=== PATIENT | male | born 1960 | race Caucasian/White ===

== ENCOUNTER → 2016-12-01 | Outpatient (CLI) | payer OTHER ==
[~2016-12-01] MED LIST: ASPIRIN325 M1 PO; ASPIRIN81 M1 PO; ASPIRIN81 M2 PO; ATENOLOL PO; BACLOFEN10 MG PO; BACTRIM DS TABL1 TA1 PO; CALCIUM + D 6001 TA1 PO; CELEXA20 MG; IBUPROFEN600 MG PO; LISINOPRIL5 MG PO; METFORMIN PO; NO MEDICATIONS; PRAVASTATIN SOD80 MG; REQUIP1 MG PO; RESTLESS LEG MED; TORADOL10 MG PO; VICODIN 5/1 TAB 5/50 PO; VITAMIN D2000 UNIT PO
--- NOTE | ~2016-12-01 | CT23 ---
[facility] A Service of [facility] RADIOLOGY TEXT RESULTS PATIENT: ASMITA CARTWRIGHT LOCATION: [facility] : 64 UNIT #: [id number] AGE: [address]: Chay Fuentes II, MD SEX: M ORDER DR: [id number] [place] [id number] O MR#: [id number] Acc #: [id number] NAME: ASMITA CARTWRIGHT : 1960 SEX: M STUDY DATE/TIME: 12/01/2016 8:04 UNIT: [facility] ROOM: STUDY DESCRIPTION: CT Angio Neck Attending Physician: Chay Fuentes II., M.D. Referring Physician: Chay Fuentes II., M.D. Ordering Physician: Chay Fuentes II., M.D. Primary Care Physician: Michelle Driscoll Aprn MEDICAL IMAGING REPORT This report is preliminary unless electronic signature is present. EXAM CTA neck Please see CTA head for results. STAT * RESULT Dictated by... Hernán Sen M.D. THIS IS AN ELECTRONICALLY VERIFIED REPORT Hernán Sen M.D. at 12/06/2016 4:50 PM VJ/yareli TD: 12/06/2016 14:08 JOB #: [id number] MEDICAL IMAGING REPORT Page 1 of 1
--- NOTE | ~2016-12-01 | CT17 ---
[facility] A Service of [facility] RADIOLOGY TEXT RESULTS PATIENT: ASMITA CARTWRIGHT LOCATION: [facility] : 64 UNIT #: [id number] AGE: [address]: Chay Fuentes II, MD SEX: M ORDER DR: [id number] [address] [address] [id number] O MR#: [id number] Acc #: [id number] NAME: ASMITA CARTWRIGHT : 1960 SEX: M STUDY DATE/TIME: 12/01/2016 8:04 UNIT: [facility] ROOM: STUDY DESCRIPTION: CT Angio Head Attending Physician: Chay Fuentes II., M.D. Referring Physician: Chay Fuentes II., M.D. Ordering Physician: Chay Fuentes II., M.D. Primary Care Physician: Michelle Driscoll Aprn MEDICAL IMAGING REPORT This report is preliminary unless electronic signature is present. EXAM CT angiogram of the head and neck with contrast COMPARISON 12/04/2012 HISTORY Vertebral occlusion or stenosis. Headaches. Previous strokes in 2013. Blurred vision in left eye since. TECHNIQUE Axial imaging was obtained from mid mediastinum to the top of the head with contrast. 100 mL of Isovue was used. CT angiography was performed with thick sliding MIPs curved planar reformats and 3-D volumetric imaging with surface shaded and volume shaded display. FINDINGS Extravascular structures are remarkable for emphysema. Normal sized submandibular nodes are seen bilaterally and are symmetric. The CT angiographic images show mild atherosclerotic disease over the arch with wide patency of the great vessels. In the posterior circulation both vertebral arteries are widely patent. The right is more dominant than the left. The basilar artery is widely patent. In the carotid circulation there is mild plaque seen across the carotid bifurcations. Just above the carotid bifurcation on the right there is soft plaque in the proximal internal carotid artery. Degree of stenosis by NASCET criteria is 40% to 45%. On the left side there is no stenosis by NASCET criteria. The siphons are widely patent with mild eccentric calcified plaque seen. [facility] A Service of [facility] RADIOLOGY TEXT RESULTS PATIENT: ASMITA CARTWRIGHT LOCATION: [facility] : 64 UNIT #: [id number] AGE: [address]: Chay Fuentes II, MD SEX: M ORDER DR: In the intracranial circulation there is no evidence of aneurysm vascular malformation or major branch vessel occlusion. No severe intracranial stenosis is noted. IMPRESSION Soft plaque in the proximal internal carotid artery on the right side with 40 to 45% stenosis by NASCET criteria. Mild nonocclusive atherosclerotic disease as described above elsewhere. No evidence of aneurysm. No evidence of branch vessel occlusive disease in the head. Both vertebral arteries are widely patent. Emphysema noted as well. STAT * RESULT Dictated by... Hernán Sen M.D. THIS IS AN ELECTRONICALLY VERIFIED REPORT Hernán Sen M.D. at 12/06/2016 4:50 PM RLYusuf/yareli TD: 12/06/2016 14:05 JOB #: [id number] MEDICAL IMAGING REPORT Page 1 of 1
[2016-12-01 08:05] LABS: POC - CREATININE 1.31 mg/dL (0.64-1.27); POC - GFR >60.0 mL/min (>60)
== END | disposition home or self-care (01) ==
LOC: SCT 07:50
PROVIDERS: Psychiatry & Neurology Neurology
DX: I65.09 Occlusion and stenosis of unspecified vertebral artery (principal); I65.21 Occlusion and stenosis of right carotid artery; J43.9 Emphysema, unspecified
CPT/HCPCS: 70496; 70498; 82565; Q9967